=== PATIENT | male | born 1995 | race Caucasian/White ===

== ENCOUNTER 2021-02-17 13:52 | Inpatient (IN) | payer OTHER ==
[2021-02-17 14:29] VITALS: BMI 25.4
[2021-02-17] MEDS ORDERED: ONDANSETRON *ODT* 4 MG TABLET SL PRN (15:09)
[2021-02-17] MEDS ORDERED: MENTHOL/PHENOL 1 EACH UD MM PRN (15:09)
[2021-02-17] MEDS ORDERED: BISMUTH SUBSALICYLATE 524 MG/30 ML PO PRN (15:09)
[2021-02-17] MEDS ORDERED: ACETAMINOPHEN 325 MG TABLET (FP) PO PRN ×2 (15:09)
[2021-02-17] MEDS ORDERED: IBUPROFEN 400 MG TABLET (FP) PO PRN (15:09)
[2021-02-17] MEDS ORDERED: METHOCARBAMOL 500 MG TABLET PO PRN (15:09)
[2021-02-17] MEDS ORDERED: hydrOXYzine PAMOATE 25 MG CAPSULE (FP) PO PRN (15:09)
[2021-02-17] MEDS ORDERED: MAGNESIUM HYDROX 2400MG/30ML ORAL SUSPENSION 30 ML CUP PO PRN (15:09)
[2021-02-17] MEDS ORDERED: MAGNESIUM CITRATE 300 ML BOTTLE PO PRN (15:09)
[2021-02-17] MEDS ORDERED: diazePAM 5 MG TABLET PO PRN (15:09)
[2021-02-17] MEDS ORDERED: NICOTINE 10 MG CARTRIDGE (INHALER) IH PRN (15:09)
[2021-02-17] MEDS: diazePAM 5 MG TABLET PO SCH ×2 (19:37→23:01)
[2021-02-17] MEDS: MELATONIN 5 MG TABLETS PO SCH (23:01)
[2021-02-17] MEDS: THIAMINE HCL 100 MG TABLET (FP) PO SCH (23:02)
[2021-02-18] MEDS: diazePAM 5 MG TABLET PO SCH ×4 (07:07→22:41)
[2021-02-18] MEDS: PRENATAL VITAMINS W/ FOLIC ACID TABLET (FP) PO SCH (10:40)
[2021-02-18] MEDS: NICOTINE 7 MG/24 HOURS TOPICAL PATCH TD SCH (10:46)
[2021-02-18 15:25] LABS: CALCIUM 8.9 mg/dL (8.5-10.1)
[2021-02-18 15:26] LABS: ALBUMIN 3.8 g/dl (3.4-5.0)
[2021-02-18 15:27] LABS: HEMATOCRIT 38.8 % (35.4-49); HEMOGLOBIN 13.5 GM/dL (11.7-16.9); MCH 29.2 pg (25.7-33.7); MCHC 34.9 g/dl (32.0-35.9); MEAN CELL VOLUME 83.8 fl (80-96); MEAN PLT VOLUME 8.1 fl (7.5-11.1); PLATELET COUNT 294 10^3/uL (134-434); RBC 4.63 M/mm3 (4.00-5.60); RDW 15.3 % (11.9-15.9); WHITE BLOOD COUNT 5.1 K/mm3 (4.0-10.0)
[2021-02-18 15:29] LABS: CREATININE 0.8 mg/dL (0.55-1.3)
[2021-02-18 15:30] LABS: BILIRUBIN,TOTAL 0.6 mg/dL (0.2-1)
[2021-02-18 15:31] LABS: TOT PROT 7.6 g/dl (6.4-8.2)
[2021-02-18] MEDS: MELATONIN 5 MG TABLETS PO SCH (22:41)
[2021-02-18] MEDS: THIAMINE HCL 100 MG TABLET (FP) PO SCH (22:41)
[2021-02-19] MEDS: diazePAM 5 MG TABLET PO SCH ×3 (06:10→22:06)
[2021-02-19] MEDS: PRENATAL VITAMINS W/ FOLIC ACID TABLET (FP) PO SCH (10:49)
[2021-02-19] MEDS: NICOTINE 7 MG/24 HOURS TOPICAL PATCH TD SCH (10:50)
[2021-02-19] MEDS: MAG HYDROX/AL HYDROX/SIMETH 30 ML UNIT-DOSE CUP PO PRN (17:51)
[2021-02-19] MEDS: THIAMINE HCL 100 MG TABLET (FP) PO SCH (22:07)
[2021-02-19] MEDS: MELATONIN 5 MG TABLETS PO SCH (22:07)
[2021-02-20] MEDS: diazePAM 5 MG TABLET PO SCH ×2 (06:06→18:10)
[2021-02-20] MEDS: NICOTINE 7 MG/24 HOURS TOPICAL PATCH TD SCH (10:18)
[2021-02-20] MEDS: PRENATAL VITAMINS W/ FOLIC ACID TABLET (FP) PO SCH (10:18)
[2021-02-20] MEDS: THIAMINE HCL 100 MG TABLET (FP) PO SCH (22:10)
[2021-02-20] MEDS: MELATONIN 5 MG TABLETS PO SCH (22:10)
[2021-02-20] MEDS: MAG HYDROX/AL HYDROX/SIMETH 30 ML UNIT-DOSE CUP PO PRN (22:12)
[2021-02-21] MEDS ORDERED: diazePAM 5 MG TABLET PO ONE (06:00)
[2021-02-21 09:08] VITALS: BP 129/81; PULSE 106; TEMP 97.3
[2021-02-21] MEDS: NICOTINE 7 MG/24 HOURS TOPICAL PATCH TD SCH (10:00)
[2021-02-21] MEDS: PRENATAL VITAMINS W/ FOLIC ACID TABLET (FP) PO SCH (10:00)
== END 2021-02-21 10:48 | disposition home or self-care (01) | DRG 774 ==
LOC: YASAS 13:52 → Y6N 17:50 → Y3N 19:45
PROVIDERS: ADMIT Allergy & Immunology; ATTEND Allergy & Immunology
PROC: HZ2ZZZZ Detoxification Services for Substance Abuse Treatment (ICD-10-PCS; principal; 2021-02-17)
DX: F10.230 Alcohol dependence with withdrawal, uncomplicated (principal); F14.20 Cocaine dependence, uncomplicated; F15.20 Other stimulant dependence, uncomplicated; F17.210 Nicotine dependence, cigarettes, uncomplicated; Z56.0 Unemployment, unspecified; Z59.0 Homelessness
CPT/HCPCS: 36415; 80053; 85027; 86780; C9803; Q0162; U0003; U0005